=== PATIENT | female | born 1965 | race Caucasian/White ===

== ENCOUNTER 2024-04-27 18:03 | Emergency (ER) | payer SELFPAY ==
[~2024-04-27] VITALS: Ht 165.1 cm; Wt 68.2 kg
[~2024-04-27 18:03] MED LIST: SPIR-37 PO
[2024-04-27 18:07] VITALS: BP 141/57; PULSE 62; RESP 18; TEMP 98; O2SAT 99
[2024-04-27] MEDS ORDERED: CEPH-558 PO (19:29)
[2024-04-27] MEDS ORDERED: SULF-261 PO (19:29)
[2024-04-27] MEDS ORDERED: IBUP-1492 PO (19:29)
[2024-04-27] MEDS: ACETAMINOPHEN 500 MG TABLET PO ONE (19:43)
[2024-04-27] MEDS: SULFAMETHOX/TRIMETH DS 800-160 MG/TABLET PO ONE (19:43)
[2024-04-27] MEDS: CEPHALEXIN MONOHYDRATE 500 MG CAPSULE PO ONE (19:43)
== END 2024-04-27 20:02 | disposition home or self-care (01) ==
LOC: EMS 18:03
DX: L03.011 Cellulitis of right finger (principal); M19.041 Primary osteoarthritis, right hand; I10 Essential (primary) hypertension; Z79.899 Other long term (current) drug therapy
CPT/HCPCS: 99284; 73140-TC; Z7502; Z7610